=== PATIENT | male | born 1995 | race Hispanic/Latino ===

== ENCOUNTER 2022-03-03 01:28 | Emergency (ER) | payer OTHER ==
[~2022-03-03] VITALS: Ht 182.9 cm; Wt 92.5 kg
[2022-03-03 01:50] VITALS: BP 147/92
[2022-03-03 02:27] LABS: BASOPHILS % (AUTO) 0.4 % (0.0-5.0); EOSINOPHILS % (AUTO) 1.5 % (0.0-8.0); HEMATOCRIT 43.2 % (42-54); LYMPHOCYTES % (AUTO) 30.6 % (21.0-51.0); MEAN CORPUSCULAR HEMOGLOBIN 28.5 pg (27.0-33.0); MEAN CORPUSCULAR HGB CONC 34.3 g/dL (32.0-36.0); MEAN CORPUSCULAR VOLUME 83.1 fL (79-99); MONOCYTES % (AUTO) 8.4 % (3.0-13.0); NEUTROPHILS % (AUTO) 58.7 % (40.0-77.0); PLATELET COUNT (AUTO) 361 K/uL (130-400); RED CELL DISTRIBUTION WIDTH 12.6 % (11.0-15.5); WHITE BLOOD COUNT (AUTO) 9.2 K/uL (4.8-10.8)
[2022-03-03] MEDS ORDERED: KETOROLAC 30MG VIAL (30MG/ML) IVP ONE (02:30)
[2022-03-03] MEDS ORDERED: 0.9%NACL 1000ML 1,000 ML IV ONE (02:30)
[2022-03-03 02:35] LABS: CREATININE 1.2 mg/dL (0.5-1.5); POTASSIUM 3.7 mmol/L (3.5-5.1)
[2022-03-03 02:44] LABS: ALBUMIN 4.2 g/dL (3.5-5.0); TOTAL PROTEIN, SERUM 7.6 g/dL (6.0-8.3)
[2022-03-03] MEDS ORDERED: BUTA-271 PO (04:01)
== END 2022-03-03 04:18 | disposition home or self-care (01) ==
LOC: EDH 01:28
DX: G43.909 Migraine, unspecified, not intractable, without status migrainosus (principal); Z90.89 Acquired absence of other organs
CPT/HCPCS: 99284; 96374; 70450; 96361; 80053; 85025; 36415; J7030; J1885

== ENCOUNTER 2024-09-10 04:18 | Emergency (ER) | payer OTHER ==
[~2024-09-10] VITALS: Ht 180.3 cm; Wt 99.3 kg
[~2024-09-10 04:18] MED LIST: BUTA-271 PO
[2024-09-10] MEDS ORDERED: AMOX1TAB16 PO (04:40)
--- NOTE | 2024-09-10 04:40 | ERN ---
General Chief Complaint: Other Problems Stated Complaint: C/O SWELLING BELOW JAW, RT SIDE X 2 DAYS Time Seen by MD: 04:33 Source: patient History of Present Illness Initial Comments Patient is a 28-year-old male coming in to be evaluated for right jaw tenderness and mild swelling. Patient states that he was really presents with this after he eats. No fever no chills no nausea no vomiting. Allergies: Coded Allergies: No Known Allergies (Unverified Allergy, Unknown, 03/03/22) Home Meds Active Scripts Butalb/Acetaminophen/Caffeine (Esgic 50-325-40 mg Tablet) 1 Each Tablet, 1 EACH PO TIDP PRN for MIGRAINE HEADACHE, #12 TAB 0 Refills Prov:FAWN ELLIS MD 03/03/22 Past Medical History Past Medical History: No Pertinent History Past Surgical History: None Surgical History Other: REMOVAL OF 3RD TESTICLE Social History Social History: Other ROS Dictation CONSTITUTIONAL: No chills, no fever, no weakness, no diaphoresis, no malaise. HEAD/FACE: No signs of trauma. EENT: No eye pain, no blurred vision, no tearing, no double vision, no ear pain, no ear discharge, no nose pain, no nasal congestion, no throat pain, no throat swelling, no mouth pain. RESPIRATORY: No cough, no orthopnea, no SOB, no stridor, no wheezing. CARDIOVASCULAR: No chest pain, no edema, no palpitations, no syncope. GASTROINTESTINAL/ABDOMINAL: No abdominal pain, no constipation, no diarrhea, no nausea, no vomiting. GENITOURINARY: No abnormal discharge, no dysuria, no frequent urination, no hematuria. No complaints of pain in the genitals. MUSCULOSKELETAL: No back pain, no gout, no joint pain, no joint swelling, no muscle pain, no muscle stiffness, no neck pain. INTEGUMENTARY: No change in color, no change in hair/nails, no dryness, no lesion, no lumps, no rash. NEUROLOGICAL/PSYCH: No anxiety, not depressed, no emotional problem, no headache, no numbness, no pre-existing deficit, no history of seizures, no tremors, no weakness. HEMATOLOGIC/LYMPHATIC: Not anemic, no history of blood clots, no apparent bleeding, no bruising, glands not swollen. All Systems Negative, Except as Noted. Physical Exam Physical Exam Dictation VITAL SIGNS: Reviewed. GENERAL APPEARANCE: Alert, oriented x3, no acute distress, obese. HEAD AND FACE: Non-traumatic. Right jaw tenderness to palpation mild swelling EYES: PERRL, pink conjunctivas, eyelid no trauma, anterior chamber clear. EARS: Pinnas intact and no signs of trauma or erythema. Ear canals clear and no discharge. TMs no erythema. NOSE: No discharge, no bleeding. OROPHARYNX: Mouth normal, teeth no caries, tongue pink. Pharynx clear, no erythema. Tonsils no exudates, no abscesses noted. Mucous membrane moist. NECK: Supple, non-tender, no thyromegaly, no masses, no JVD, no bruits. BREAST: Deferred. CHEST: No tenderness, no crepitus, no paradoxical movement, no retractions. LUNGS: Clear, well-ventilated, symmetric, no rales, no wheezing, no rhonchi, no stridor, good breath sounds bilaterally. HEART: Regular rate, regular rhythm, no murmur, no gallops. VASCULAR: No peripheral edema. ABDOMEN: Soft, positive bowel sounds, nondistended, no guarding, nontender, no rebound, no masses no hepatomegaly, no splenomegaly, no Michael's sign, no hernias. RECTAL: Deferred. GENITAL: Deferred. NEUROLOGICAL: Normal speech, gross motor function intact, gross sensory function intact. MUSCULOSKELETAL: Neck nontender, full range of motion, back nontender, full range of motion. EXTREMITIES: Nontender, full range of motion. SKIN: Color pink, dry, no turgor, no rash, no lacerations, no abrasions, no contusions. LYMPHATICS: Deferred. Results Laboratory and Microbiology Labs Reviewed?: Yes MDM MDM: Differential diagnosis: Sinusitis, oropharyngeal erythema, lymph node swelling Patient is a 28-year-old gentleman coming in to be evaluated for right jaw discomfort no swelling. Patient states that this has been ongoing for several days after he eats he noticed swelling. On evaluation in triage mild swelling oropharyngeal erythema suggestive of sinusitis. Patient will be discharge with antibiotics for sinusitis and lymph node swelling. ED Course Vital Signs Date Time Temp Pulse Resp B/P (MAP) Pulse Ox O2 Delivery O2 Flow Rate FiO2 09/10/24 04:20 97.3 67 20 149/96 98 Room Air DX & DISP Disposition: Discharge Departure Impression: Primary Impression: Sinusitis Additional Impression: Lymphangitis Condition: Stable Scripts Amoxicillin/Potassium Clav (Amox Tr-K Clv 875-125 mg Tab) 875 Mg-125 Mg Tablet 1 TAB PO BID for 10 Days, #20 TAB 0 Refills Prov: FRANKO RIOS MD 09/10/24 Additional Instructions: FOLLOW-UP WITH PRIMARY CARE PROVIDER IN 1 TO 2 DAYS. TAKE MEDICATIONS DIRECTED HERE IN THE EMERGENCY ROOM. OKAY TO CONTINUE HOME MEDICATIONS UNLESS OTHERWISE DISCUSSED DURING YOUR VISIT IN THE EMERGENCY ROOM TODAY. RETURN TO YOUR NEAREST EMERGENCY ROOM IF SYMPTOMS WORSEN OR IF THERE IS NO IMPROVEMENT. CALL 911 IF YOU NEED IMMEDIATE ASSISTANCE. TAKE TYLENOL [id number] NEEDED AND IF NO CONTRAINDICATIONS ARE PRESENT. INCREASE ORAL HYDRATION. A WOUND CULTURE OR URINE CULTURE WAS ORDERED HERE IN THE EMERGENCY ROOM DEPARTMENT PLEASE FOLLOW-UP WITH PRIMARY CARE PROVIDER AND ADVISE THEM TO GET REPEAT PORTS FROM OUR FACILITY. IF YOU HAD ANY JENNIFER WRAP/SPLINTS THAT WERE APPLIED HERE, PLEASE DO NOT REMOVE THEM UNTIL YOU SEE YOUR PRIMARY CARE OR SPECIALTY. Referrals: Referrals: SELF,REFERRAL (PCP) SKINNY LEONARDO MD Time of Disposition: 04:39 FRANKO RIOS MD Sep 10, 2024 04:40
[2024-09-10 04:45] VITALS: BP 142/89; PULSE 66; RESP 18; TEMP 97.3; O2SAT 99
== END 2024-09-10 04:50 | disposition home or self-care (01) ==
LOC: EDH 04:18
DX: J32.9 Chronic sinusitis, unspecified (principal); I89.1 Lymphangitis; Z90.79 Acquired absence of other genital organ(s); Z79.899 Other long term (current) drug therapy
CPT/HCPCS: 99283

== ENCOUNTER 2024-10-25 03:44 | Emergency (ER) | payer OTHER ==
[~2024-10-25] VITALS: Ht 180.3 cm; Wt 93.9 kg
[~2024-10-25 03:44] MED LIST changes: +AMOX1TAB16 PO
--- NOTE | 2024-10-25 04:15 | ERN ---
ED Note History of Present Illness Stated Complaint: CHEST PAIN Chief Complaint: Chest Pain Time Seen by MD: 03:54 Dictation: This is a 28-year-old male who presented to the emergency room with complaints of right-sided chest pain that has been going on since . He reports th at the pain is worse when he takes a breath this is also associated with cough for about a week No hematemesis. No fevers chills or rigors. No travel or new pets at home no other sick contacts. Give a history of smoking marijuana as well as vaping Temperature 98.6 pulse 78 respirations 19 blood pressure 162/94 with a pulse oximetry of 98% on room air Allergies: Coded Allergies: No Known Allergies (Unverified Allergy, Unknown, 03/03/22) Home Meds Active Scripts Prednisone (Prednisone) 20 Mg Tablet, 1 TAB PO AD for 6 Days, #14 TAB 0 Refills TAKE 1 TAB BY MOUTH THREE TIMES PER DAY X3 DAYS, THEN TAKE 1 TAB BY MOUTH TWICE A DAY X2 DAYS, THEN TAKE 1 TAB BY MOUTH ONCE A DAY X1 DAY. Prov:ABHILASH EPPERSON MD 10/25/24 Azithromycin (Azithromycin) 250 Mg Tablet, 1 TAB PO AD for 5 Days, #6 TAB 0 Refills 2 the first day followed by 1 for days 2-5 Prov:ABHILASH EPPERSON MD 10/25/24 Amoxicillin/Potassium Clav (Amox Tr-K Clv 875-125 mg Tab) 875 Mg-125 Mg Tablet, 1 TAB PO BID for 10 Days, #20 TAB 0 Refills Prov:FRANKO RIOS MD 09/10/24 Butalb/Acetaminophen/Caffeine (Esgic 50-325-40 mg Tablet) 1 Each Tablet, 1 EACH PO TIDP PRN for MIGRAINE HEADACHE, #12 TAB 0 Refills Prov:FAWN ELLIS MD 03/03/22 Past Medical History Past Medical History: No Pertinent History Surgical History: None Surgical History Other: REMOVAL OF 3RD TESTICLE Social History: Drugs (Smokes and vapes marijuana), ETOH (Social EtOH), Other RN Note Reviewed/Agreed w/PFSH: Yes Review of System Dictation Constitutional: Negative for fever,chills, and weight loss Eyes: Negative for injury, pain,redness, and discharge ENT: Negative for injury,pain or swelling Cardiovascular: Positive for right side chest pain, denies palpitations, and edema Respiratory: Negative for shortness of breath, positive for cough, and wheezing, Abdomen/GI: Negative for abdominal pain, nausea, vomiting, diarrhea, and constipation Back: Negative for injury and pain : Negative for injury, bleeding and discharge MS/Extremity: Negative for injury and deformity Skin: Negative for rash, and discoloration Neuro: Negative for headache, weakness, numbness, tingling, and seizure Psych: Negative for suicide ideation, homicidal ideation, and hallucinations Initial Vital Sign VS Vital Signs Date Time Temp Pulse Resp B/P (MAP) Pulse Ox O2 Delivery O2 Flow Rate FiO2 10/25/24 03:46 98.6 78 19 162/94 98 Room Air Physical Exam Dictation General: awake, alert, NAD Head/Face: Normocephalic, atraumatic Eyes: PERRL, EOMI, vision at baseline ENT: oral cavity clear, TMs clear, no signs of infection Neck: Trachea midline, supple, no nuchal rigidity Cardiovascular: RRR, normal S1/S2, No MRGs, no JVD Respiratory: CTAB, no respiratory distress, No rales or wheezes positive pleural rub Abdomen: Soft, non-tender, non-distended, normal bowel sounds, no guarding or re bound. Skin: Warm, dry, normal turgor, no rash MS/Extremity: Pulses equal, no cyanosis, neurovascular intact, FROM Neuro: COAx4, GCS 15, strength 5/5, CN 2-12 intact, normal cerebellar exam, normal gait, Psych: Normal behavior, mood, and affect normal Extremities-trace edema without any palpable cords, Homans sign is negative Results (Laboratory/Radiology) Laboratory/Radiology Laboratory Tests Test 10/25/24 04:13 White Blood Count 8.9 K/uL (4.8-10.8) Red Blood Count 5.17 MIL/uL (4.50-6.20) Hemoglobin 14.5 g/dL (14.0-18.0) Hematocrit 42.0 % (42-54) Mean Corpuscular Volume 81.2 fL (79-99) Mean Corpuscular Hemoglobin 28.0 pg (27.0-33.0) Mean Corpuscular Hemoglobin Concent 34.5 g/dL (32.0-36.0) Red Cell Distribution Width 12.3 % (11.0-15.5) Platelet Count 401 K/uL (130-400) H Mean Platelet Volume 10.4 fL (7.5-10.5) Immature Granulocyte % (Auto) 0.7 % (0-1) Neutrophils (%) (Auto) 54.0 % (40.0-77.0) Lymphocytes (%) (Auto) 35.1 % (21.0-51.0) Monocytes (%) (Auto) 6.6 % (3.0-13.0) Eosinophils (%) (Auto) 2.9 % (0.0-8.0) Basophils (%) (Auto) 0.7 % (0.0-5.0) Neutrophils # (Auto) 4.8 K/uL (1.8-7.7) Lymphocytes # (Auto) 3.1 K/uL (1.0-4.8) Monocytes # (Auto) 0.6 K/uL (0.1-1.0) Eosinophils # (Auto) 0.26 K/uL (0.00-0.70) Basophils # (Auto) 0.06 K/uL (0.00-0.20) Absolute Immature Granulocyte (auto 0.06 K/uL (0-1) Nucleated Red Blood Cells 0.0 % (0.0-0.19) Sodium Level 137 mmol/L (136-145) Potassium Level 3.8 mmol/L (3.5-5.1) Chloride Level 101 mmol/L (101-111) Carbon Dioxide Level 28 mmol/L (21-32) Blood Urea Nitrogen 14 mg/dL (7-18) Creatinine 0.9 mg/dL (0.5-1.3) Glomerular Filtration Rate Calc 121 mL/min (>90) Random Glucose 135 mg/dL (70-105) H Total Calcium 9.4 mg/dL (8.5-10.1) Total Creatine Kinase 91 U/L (21-232) Troponin I High Sensitivity 4 ng/L (4-75) B-Type Natriuretic Peptide < 5 pg/mL (0-100) Labs Reviewed?: Yes EKG Comment: Twelve lead EKG done on 10/25/2024 at 3:59 a.m. showed a heart rate of 73, MD interval 144, QRS 91, QT/QTC 363/401 Impression normal sinus rhythm with nonspecific changes. Interpreted by ER MD Dr. Epperson ED Course ED Course Orders Procedure Category Date Status Time Vital Signs Per CPOE 10/25/24 Transmitted Routine 03:54 B-Type Natriuretic LAB 10/25/24 Complete Peptide 03:54 Chest 1vw RAD 10/25/24 Taken 03:54 12 Lead Ekg Tracing- EKG 10/25/24 Logged Technical 03:54 Oxygen By Nc/Pulse Ox CPOE 10/25/24 Transmitted 03:54 Maintain Iv CPOE 10/25/24 Transmitted 03:54 Iv Insertion CPOE 10/25/24 Transmitted 03:54 Cardiac Monitoring CPOE 10/25/24 Transmitted 03:54 Pulse Oximetry With CPOE 10/25/24 Transmitted Vs And Prn 03:54 Cbc With Differential LAB 10/25/24 Complete 03:54 Activity: Br W/Brp CPOE 10/25/24 Transmitted With Assist 03:54 Creatine Kinase, Total LAB 10/25/24 Complete 03:54 Troponin I High LAB 10/25/24 Complete Sensitivity 03:54 Urinalysis Profile LAB 10/25/24 Logged 03:54 Basic Metabolic Panel LAB 10/25/24 Complete 03:54 Drug Screen Urine LAB 10/25/24 Logged 03:58 Methylprednisolone PHA 10/25/24 Complete Succ 40mg (Solu-Medro 06:00 Ketorolac PHA 10/25/24 Complete Tromethamine 15mg/Ml 06:00 Current Medications Medications (Trade) Dose Ordered Sig/Cruz Route PRN Reason Start Time Stop Time Status Last Admin Dose Admin Ketorolac Tromethamine (toRADol) 15 mg ONCE ONCE IM 10/25/24 06:00 10/25/24 06:01 DC Methylprednisolone Sodium Succinate (Solu-medROL 40MG) 40 mg ONCE ONCE IM 10/25/24 06:00 10/25/24 06:01 DC Vital Signs Date Time Temp Pulse Resp B/P (MAP) Pulse Ox O2 Delivery O2 Flow Rate FiO2 10/25/24 03:46 98.6 78 19 162/94 98 Room Air We will perform diagnostic labs, advanced imaging and administer medications according to the patient's complaint. Once the results are available, will review and personally interpreted the labs to rule out any acute life- threatening emergency the trach require immediate intervention and treatment. I will then re-evaluate the patient after treatment and diagnostic exams have return to determine whether the patient requires any further testing, can safely be discharged home or need further admission to hospital for additional treatment and evaluation. 5:13 a.m. CBC is with a normal limits. BNP 7 is normal except for a glucose of 135. Troponins are negative brain natriuretic peptide is negative Trial of low-dose steroid and a nonsteroidal anti-inflammatory agent for the right-sided pleuritic pain. I had a long discussion with the patient about all the toxic effects of marijuana including complications like pneumothorax, reactive airway disease, psychosis and encouraged him to quit cannabis use. I will discharge him on a short course of steroid and an antibiotic HEART Score Response (Comments) Value History: Low suspicion (0) 0 EKG: Normal 0 Age: < 45yrs (0) 0 Risk Factors: No known risk factors (0) 0 Initial Troponin: Normal limit (0) 0 HEART Score Risk: Low Risk for MACE (1-3) Total 0 Medical Decision Making MDM MDM: Differential diagnosis: Pleurisy, chest wall pain, gastroesophageal reflux, cardiac, marijuana lung, bronchitis Rationale: Tests considered and ordered secondary to shared decision making include: Previous outside records reviewed: Old ER visits. Risk of complication and/or morbidity or mortality of patient management: None Medications-Per medication reconciliation Need for hospitalization: Patient does not meet criteria for hospitalization. Need for emergency major/minor surgery: No There are no social concerns with this patient. Prescription drug management Prescriptions will include symptomatic care Patient's prior external medical records from other ER visits were reviewed by me as indicated. Prior testing and results from previous visits were reviewed. Prior tests were taken into account with medical decision making and resource utilization, independent historian/historians were used to obtain complete medical history. I independently interpreted the test that were performed, results were reviewed by me and considered findings on radiology if ordered. Medical management and examination interpretation discussions were had by me with other qualified healthcare professionals as indicated for the patient's care. Problem List Problem List: (1) Pleurisy (2) Cannabis use disorder (3) Acute bronchitis DX & DISP Disposition: Discharge Departure Impression: Primary Impression: Pleurisy Additional Impressions: Cannabis use disorder, Acute bronchitis Condition: Stable Scripts Prednisone (Prednisone) 20 Mg Tablet 1 TAB PO AD for 6 Days, #14 TAB 0 Refills TAKE 1 TAB BY MOUTH THREE TIMES PER DAY X3 DAYS, THEN TAKE 1 TAB BY MOUTH TWICE A DAY X2 DAYS, THEN TAKE 1 TAB BY MOUTH ONCE A DAY X1 DAY. Prov: ABHILASH EPPERSON MD 10/25/24 Azithromycin (Azithromycin) 250 Mg Tablet 1 TAB PO AD for 5 Days, #6 TAB 0 Refills 2 the first day followed by 1 for days 2-5 Prov: ABHILASH EPPERSON MD 10/25/24 Additional Instructions: Patient and the caregiver have been informed of all the diagnostic tests and the imaging conducted during the today's visit to the emergency room and has verbalized understanding of the results I have personally reviewed and interpreted all diagnostic exams performed here in the ER today as well as the vital signs documented by the nursing staff. The patient is now being discharged to home and should follow up with the primary care physician or the specialist as directed by the ER staff. Follow-up with primary care provider in 1 to 2 days. Take medications as directed here in the emergency room. Okay to continue home medications unless otherwise discussed during your visit in the emergency room today. Return to your nearest emergency room if symptoms worsen or if there is no improvement. Call 911 if you need immediate assistance. Take Tylenol or Motrin [id number] as needed and if no contraindications are present. Increase oral hydration. A wound culture or urine culture was ordered here in the emergency room department please follow-up with primary care provider and advise them to get repeat ports from our facility. If you had any Quinten wrap/splints that were applied here, please do not remove them until you see your primary care or specialty. Referrals: SELF,REFERRAL (PCP) ABHILASH EPPERSON MD Oct 25, 2024 04:15
[2024-10-25 04:46] LABS: BASOPHILS # (AUTO) 0.06 K/uL (0.00-0.20); BASOPHILS % (AUTO) 0.7 % (0.0-5.0); EOSINOPHILS # (AUTO) 0.26 K/uL (0.00-0.70); EOSINOPHILS % (AUTO) 2.9 % (0.0-8.0); IMMATURE GRANULOCYTE ABSOLUTE 0.06 K/uL (0-1); LYMPHOCYTES # (AUTO) 3.1 K/uL (1.0-4.8); LYMPHOCYTES % (AUTO) 35.1 % (21.0-51.0); MEAN CORPUSCULAR HGB CONC 34.5 g/dL (32.0-36.0); MEAN CORPUSCULAR VOLUME 81.2 fL (79-99); MONOCYTES # (AUTO) 0.6 K/uL (0.1-1.0); MONOCYTES % (AUTO) 6.6 % (3.0-13.0); NEUTROPHILS # (AUTO) 4.8 K/uL (1.8-7.7); PLATELET COUNT (AUTO) 401 K/uL (130-400); RED BLOOD CELL COUNT(AUTO) 5.17 MIL/uL (4.50-6.20); RED CELL DISTRIBUTION WIDTH 12.3 % (11.0-15.5); WHITE BLOOD COUNT (AUTO) 8.9 K/uL (4.8-10.8)
[2024-10-25 04:58] LABS: CREATININE 0.9 mg/dL (0.5-1.3); POTASSIUM 3.8 mmol/L (3.5-5.1)
[2024-10-25 05:05] LABS: B-TYPE NATRIURETIC PEPTIDE < 5 pg/mL (0-100)
[2024-10-25] MEDS ORDERED: AZIT250T9 PO (05:46)
[2024-10-25] MEDS ORDERED: PRED20TA3 PO (05:47)
[2024-10-25] MEDS: ketOROlac 15MG/ML VIAL (15MG/ML) IM ONE (06:20)
[2024-10-25] MEDS: Solu-medROL 40MG VIAL IM ONE (06:21)
[2024-10-25 06:48] VITALS: BP 148/88; PULSE 76; RESP 16; TEMP 98.4; O2SAT 99
--- NOTE | 2024-10-25 07:09 | EKG ---
[facility] Test Date: 2024-10-25 Test Time: 03:59:52 Pat Name: NEGRITO HUFFMAN Department: ED Room: Gender: M [employer] Specialist: [id number] : 1995 Requested By: ABHILASH HARPER Order Number: [id number] Reading MD: Taj Cline Measurements Intervals [place] Rate: 73 P: 1 MA: 144 QRS: 7 QRSD: 91 T: 31 QT: 363 QTc: 401 Interpretive Statements Sinus rhythm No previous ECG available for comparison Electronically Signed On 10-27-2024 18:32:16 CDT by Taj Cline Please click the below link to view image of tracing.
--- NOTE | 2024-10-25 08:45 | HMCIMG ---
Exam Type: CHEST 1VW Clinical Information: CHEST PAIN Comparison: None Findings: The lungs are clear of infiltrates. The heart is normal in size. The bony and soft tissue structures of the chest are unremarkable. Impression: Clear lungs.
== END 2024-10-25 06:52 | disposition home or self-care (01) ==
LOC: EDH 03:44
DX: J20.9 Acute bronchitis, unspecified (principal); R09.1 Pleurisy; F12.90 Cannabis use, unspecified, uncomplicated; F17.290 Nicotine dependence, other tobacco product, uncomplicated; Z79.899 Other long term (current) drug therapy; Z90.79 Acquired absence of other genital organ(s)
CPT/HCPCS: 99285; 71045; 82550; 84484; 80048; 83880; 85025; 36415; 96372 ×2; 93005; J1885; J2919